=== PATIENT | female | born 1995 | race Caucasian/White ===

== ENCOUNTER 2018-01-26 18:27 | Observation (INO) | payer OTHER ==
[~2018-01-26] VITALS: Ht 175.3 cm; Wt 66.7 kg
[2018-01-26] MEDS ORDERED: ONDANSETRON 4 MG/2 ML VIAL IVP ONE ×2 (18:35→21:10)
[2018-01-26 18:46] LABS: PLATELET COUNT, AUTOMATED 355 K/uL (150-450)
--- NOTE | 2018-01-26 18:47 | ER Report ---
History and Physical Time Seen By MD: 18:31 HPI/ROS CHIEF COMPLAINT: Fall from 25 feet HISTORY OF PRESENT ILLNESS: 22-year-old female brought in by EMS after a fall of approximately 25 feet. She tumbled down the rock face, a total of 25 feet. She struck her head. She also complains of injuring her left knee. EMS responded to the scene. It was a 2 hour hike to get out. Patient was administered fentanyl for pain relief so that she can ambulate. Her left leg is supportive of the same splint and bandaging. There is a laceration to the right eyebrow. Patient's mental status at the scene was initially clear. Patient began to get repetitive per EMS report. She received Zofran 4 mg and fentanyl 50 g 2 in route by EMS. On arrival, she is alert and oriented. She is in a cervical spine collar. She is slightly pale appearing with stable vital signs. REVIEW OF SYSTEMS: Respiratory: No cough, no dyspnea. Cardiovascular: No chest pain, no palpitations. Gastrointestinal: No vomiting, no abdominal pain. Musculoskeletal: No back pain. Allergies: Coded Allergies: No Known Drug Allergies (Unverified , 01/26/18) Home Meds Unable to Obtain Active Prescriptions or Reported Meds Reviewed Nurses Notes: Yes Old Medical Records Reviewed: Yes Constitutional Vital Sign - Last 24 Hours 01/26/18 01/26/18 01/26/18 01/26/18 18:27 18:38 18:45 18:57 Pulse ??? 101 Resp 18 B/P (MAP) 124/83 (97) 125/83 (97) Pulse Ox 100 01/26/18 01/26/18 01/26/18 01/26/18 19:00 19:23 19:27 19:30 Temp 98.7 Pulse 114 106 Resp 18 15 B/P (MAP) 125/89 116/69 (85) 114/61 (78) Pulse Ox 97 99 O2 Delivery Room Air 01/26/18 01/26/18 01/26/18 01/26/18 19:45 19:57 20:00 20:15 Pulse 104 Resp 14 B/P (MAP) 114/52 (72) 109/51 (70) 97/50 (66) Pulse Ox 99 9/29/18 9/29/18 9/29/18 9/29/18 20:15 20:30 20:45 21:00 Pulse 104 98 Resp 10 10 B/P (MAP) 97/50 (66) 101/51 (68) 100/62 (75) 107/60 (76) Pulse Ox 99 97 Physical Exam General Appearance: The patient is alert, has no immediate need for airway protection and no signs of toxicity. The patient of the head and neck reveal no penetrating ulceration to the right eyebrow, facial bones. Intact. Eyes: Pupils equal and round no pallor or injection. PERRLA, EOMI ENT, Mouth: Mucous membranes are moist. TMs normal Respiratory: There are no retractions, lungs are clear to auscultation. No chest wall tenderness Cardiovascular: Regular rate and rhythm., No murmur Gastrointestinal: Abdomen is soft and non tender, no masses, bowel sounds normal. Neurological: Alert and oriented 3,, repetitive amnesia of event, cranial nerves II through XII intact motor 5/5 all groups, sensory intact to light touch 4 Skin: Warm and dry, no rashes. Musculoskeletal: Neck is supple non tender. Extremities are nontender, nonswollen and have full range of motion. There is moderate tenderness on palpation of the left knee. Stool neurovascular functions intact DIFFERENTIAL DIAGNOSIS: After history and physical exam differential diagnosis was considered for fall including but not limited to intracranial injury, long bone and pelvic bone fracture, spinal injury, and intrathoracic injury. Medical Decision Making Data Points Result Diagram: 01/27/18 0520 01/26/18 1814 Laboratory Hematology Test 01/26/18 18:14 Peripheral Blood Smear Yes Y/N Prothrombin Time 13.9 seconds (12.0-14.4) Prothromb Time International Ratio 1.07 Activated Partial Thromboplast Time 30 seconds (23-35) Sodium Level 139 mmol/L (137-145) Potassium Level 3.2 mmol/L (3.5-5.0) Chloride Level 104 mmol/L (98-107) Carbon Dioxide Level 22 mmol/L (22-31) Blood Urea Nitrogen 12 mg/dl (7-18) Creatinine 0.90 mg/dl (0.52-1.04) Glomerular Filtration Rate Calc > 60.0 Random Glucose 105 mg/dl (75-110) Calcium Level 8.6 mg/dl (8.4-10.2) Total Bilirubin 0.6 mg/dl (0.2-1.3) Aspartate Amino Transf (AST/SGOT) 26 U/L (0-35) Alanine Aminotransferase (ALT/SGPT) 31 U/L (0-56) Alkaline Phosphatase 59 U/L (0-126) Total Protein 6.2 g/dl (6.3-8.2) Albumin 3.9 g/dl (3.5-5.0) Human Chorionic Gonadotropin, Qual Negative (NEGATIVE) Serum Alcohol < 10 mg/dl Chemistry Test 01/26/18 18:14 Peripheral Blood Smear Yes Y/N Prothrombin Time 13.9 seconds (12.0-14.4) Prothromb Time International Ratio 1.07 Activated Partial Thromboplast Time 30 seconds (23-35) Glomerular Filtration Rate Calc > 60.0 Calcium Level 8.6 mg/dl (8.4-10.2) Total Bilirubin 0.6 mg/dl (0.2-1.3) Aspartate Amino Transf (AST/SGOT) 26 U/L (0-35) Alanine Aminotransferase (ALT/SGPT) 31 U/L (0-56) Alkaline Phosphatase 59 U/L (0-126) Total Protein 6.2 g/dl (6.3-8.2) Albumin 3.9 g/dl (3.5-5.0) Human Chorionic Gonadotropin, Qual Negative (NEGATIVE) Serum Alcohol < 10 mg/dl Coagulation Test 01/26/18 18:14 Prothrombin Time 13.9 seconds Prothromb Time International Ratio 1.07 Activated Partial Thromboplast Time 30 seconds Toxicology Test 01/26/18 18:14 Serum Alcohol < 10 mg/dl EKG/Imaging Imaging X-ray: Single view chest, 2 views was obtained. I viewed the images myself on the PACS system. My interpretation of the images is: No pneumothorax, no frac tured ribs, no hemothorax. The radiologist interpretation had no clinically significant variation from this interpretation. X-ray: Pelvis, single view was obtained. I viewed the images myself on the PACS system. My interpretation of the images is: No fracture no dislocation or malalignment. The radiologist interpretation had no clinically significant variation from this interpretation. X-ray: Left knee, 3 views was obtained. I viewed the images myself on the PACS system. My interpretation of the images is: Nondisplaced tibial plateau fracture, intra-articular. The radiologist interpretation had no clinically significant variation from this interpretation. ED Course/Re-evaluation Clinical Indication for ER IV: Hydration, IV Access ED Course Patient was admitted to an examination room. H&P was done. The differential diagnoses was considered. On clinical examination. Patient alert and oriented 3. She is repetitive consistent with concussion, head injury. She fell 25 feet down a steep rock face. She's complaining of severe left knee pain. She did ambulate out from the remote location where she was at. EMS escorted her with IVs in administering Zofran and fentanyl as needed. Patient presents in a collar with C-spine precautions. Initially on EMSs arrival, patient had a clear mentation. She began to get repetitive as they got closer to the ambulance. Patient had a jerome CT as well as the head and neck CT which were negative. Plain x-rays of the left knee show a nondisplaced tibial plateau fracture. Patient was admitted to general surgery for monitoring overnight. Decision to Disposition Date: Jan 26, 2018 Decision to Disposition Time: 19:16 Critical Care Time I spent a total of 60 minutes of critical care time in obtaining history, performing a physical exam, bedside monitoring of interventions, collecting and interpreting tests and discussion with consultants but not including time spent performing procedures. Depart Departure Latest Vital Signs Vital Signs Date Time Temp Pulse Resp B/P (MAP) Pulse Ox O2 Delivery O2 Flow Rate FiO2 01/26/18 21:00 107/60 (76) 01/26/18 20:45 98 10 97 01/26/18 19:00 98.7 Room Air Impression: Primary Impression: Injury resulting from fall from height Additional Impressions: Tibial plateau fracture, left Multiple abrasions Condition: Improved Disposition: HOME OR SELF-CARE New Scripts Unable to Obtain Active Prescriptions or Reported Meds Problem Qualifiers Additional Impressions: Tibial plateau fracture, left Encounter type: initial encounter Fracture type: closed Qualified Codes: S82.142A - Displaced bicondylar fracture of left tibia, initial encounter for closed fracture PREET FIELDS DO Jan 26, 2018 18:47
[2018-01-26 18:51] LABS: INR 1.07
[2018-01-26] MEDS: NS(*) 0.9% 500 ML BAG 500 ML IV ONE ×2 (19:00→19:38)
[2018-01-26] MEDS ORDERED: IOPAMIDOL 76% 75 ML INFUS BTL 75 ML ONE (19:03)
[2018-01-26] MEDS ORDERED: MORPHINE 4 MG/ML SDV IVP ONE (19:20)
--- NOTE | 2018-01-26 19:33 | RADIOLOGY IMAGING REPORT ---
FACILITY: [facility] PATIENT NAME: Bhargavi Edgar : 1995 MR: [id number] V: [id number] EXAM DATE: ORDERING PHYSICIAN: PREET FIELDS TECHNOLOGIST: Location: [facility] Patient: Bhargavi Edgar : 1995 Visit/Account:[id number] Date of Sevice: 01/26/2018 CHEST SINGLE AP Indication: Fall from 25 feet.. Comparison: None available Findings: Cardiomediastinal silhouette and pulmonary vessels within normal limits. There is no focal infiltrate or lobar consolidation. No pneumothorax or pleural effusion. No nodule. Upper abdomen is unremarkable. No acute bony abnormality. No discrete rib fractures. Bilat eral nipple piercings. IMPRESSION: 1. No acute cardiopulmonary process. No discrete indication of thoracic trauma. Report Dictated By: Mj Capps at 01/26/2018 7:29 PM Report E-Signed By: Mj Capps at 01/26/2018 7:31 PM WSN:[id number]
--- NOTE | 2018-01-26 19:38 | RADIOLOGY IMAGING REPORT ---
FACILITY: [facility] [place] PATIENT NAME: Bhargavi Edgar : 1995 MR: [id number] V: [id number] EXAM DATE: ORDERING PHYSICIAN: PREET FIELDS TECHNOLOGIST: Location: [facility] [place] Patient: Bhargavi Edgar : 1995 Visit/Account:[id number] Date of Sevice: 01/26/2018 PELVIS INDICATION: Pain after fall. COMPARISON: None available FINDINGS: AP view the pelvis. No fracture or dislocation. The sacral morgan appear intact. SI joints are unremarkable. Hips are symmetric. No bony lesions. Soft tissues are unremarkable. IMPRESSION: No acute abnormality. Report Dictated By: Mj Capps at 01/26/2018 7:33 PM Report E-Signed By: Mj Capps at 01/26/2018 7:35 PM WSN:[id number]
--- NOTE | 2018-01-26 19:39 | RADIOLOGY IMAGING REPORT ---
FACILITY: [facility] PATIENT NAME: Bhargavi Edgar : 1995 MR: [id number] V: [id number] EXAM DATE: ORDERING PHYSICIAN: PREET FIELDS TECHNOLOGIST: Location: [facility] [place] Patient: Bhargavi Edgar : 1995 Visit/Account:[id number] Date of Sevice: 01/26/2018 KNEE 3 VIEW LEFT Indication: Knee pain after fall from 25 feet. Comparison: None available Findings: 3 views left knee were obtained. Comminuted fracture of the proximal tibia with multiple fracture lines extending vertically from the lateral posterior diaphysis into the tibial plateau. The lateral tibial plateau does appear to show m ild depression possibly up to 2 to 3 mm on the lateral aspect.. There is avulsion off the tibial analy ence. No other indication of fracture. Large joint effusion is present. No bony lesions or degenerati ve changes. Soft tissues are otherwise unremarkable. IMPRESSION: 1. Proximal tibia fracture with possible mild depression of lateral tibial plateau. Joint effusion. I called report to PREET FIELDS at 01/26/2018 7:36 PM. Report Dictated By: Mj Capps at 01/26/2018 7:31 PM Report E-Signed By: Mj Capps at 01/26/2018 7:36 PM WSN:[id number]
--- NOTE | 2018-01-26 20:26 | RADIOLOGY IMAGING REPORT ---
FACILITY: [facility] [place] PATIENT NAME: Bhargavi Edgar : 1995 MR: [id number] V: [id number] EXAM DATE: ORDERING PHYSICIAN: PREET FIELDS TECHNOLOGIST: [place] [facility] [place] Bhargavi [place] : 1995 Visit/Account:[id number] Date of Sevice: 01/26/2018 CT Head without contrast and CT Cervical spine: Indication: Fall from 25 feet. Rockclimbing. Comparison: None available Technique: CT head: Axial CT images were obtained through the brain from the skull base to the verte x without administration of IV contrast. Reformatted coronal and sagittal images were also obtained. Technique: CT cervical spine: Axial CT imaging of the cervical spine was performed. 2-D sagittal and coronal CT reformats were also obtained. One of the following dose optimization techniques was utilized in the performance of this exam: Autom ated exposure control; adjustment of the mA and/or kV according to the patient's size; or use of an i terative reconstruction technique. Specific details can be referenced in the facility's radiology C T exam operational policy. FINDINGS: CT head: No intracranial bleed, midline shift, mass effect, extra-axial fluid collection or hydrocephalus. No abnormal density. Collier/white matter differentiation appears normal. The bony structures show no fract ures or discrete lesions. The left maxillary sinus does show some fluid and mucosal thickening with o bscuration ostomy complex. The remaining sinuses and mastoids visualized are clear. Small laceration along the lateral right for head. CT cervical spine: The vertebral bodies are aligned. No fracture or facet dislocation. No bony lesions or degenerative c hanges. The endplates are maintained. No obvious disc herniation. Prevertebral soft tissues and surro unding soft tissues are unremarkable. Lung apices are clear. IMPRESSION: 1. No acute intracranial abnormality. No fracture. 2. No acute osseous or acute alignment abnormality of the cervical spine. 3. Fluid and mucosal thickening seen in left maxillary sinus. Likely due to sinus disease. No discret e fractures are identified. Report Dictated By: Mj Capps at 01/26/2018 8:15 PM Report E-Signed By: Mj Capps at 01/26/2018 8:23 PM WSN:[id number]
--- NOTE | 2018-01-26 20:27 | RADIOLOGY IMAGING REPORT ---
FACILITY: [facility] PATIENT NAME: Bhargavi Edgar : 1995 MR: [id number] V: [id number] EXAM DATE: ORDERING PHYSICIAN: PREET FIELDS TECHNOLOGIST: Location: [facility] Patient: Bhargavi Edgar : 1995 Visit/Account:[id number] Date of Sevice: 01/26/2018 CT Head without contrast and CT Cervical spine: Indication: Fall from 25 feet. Rockclimbing. Comparison: None available Technique: CT head: Axial CT images were obtained through the brain from the skull base to the verte x without administration of IV contrast. Reformatted coronal and sagittal images were also obtained. Technique: CT cervical spine: Axial CT imaging of the cervical spine was performed. 2-D sagittal and coronal CT reformats were also obtained. One of the following dose optimization techniques was utilized in the performance of this exam: Autom ated exposure control; adjustment of the mA and/or kV according to the patient's size; or use of an i terative reconstruction technique. Specific details can be referenced in the facility's radiology C T exam operational policy. FINDINGS: CT head: No intracranial bleed, midline shift, mass effect, extra-axial fluid collection or hydrocephalus. No abnormal density. Collier/white matter differentiation appears normal. The bony structures show no fract ures or discrete lesions. The left maxillary sinus does show some fluid and mucosal thickening with o bscuration ostomy complex. The remaining sinuses and mastoids visualized are clear. Small laceration along the lateral right for head. CT cervical spine: The vertebral bodies are aligned. No fracture or facet dislocation. No bony lesions or degenerative c hanges. The endplates are maintained. No obvious disc herniation. Prevertebral soft tissues and surro unding soft tissues are unremarkable. Lung apices are clear. IMPRESSION: 1. No acute intracranial abnormality. No fracture. 2. No acute osseous or acute alignment abnormality of the cervical spine. 3. Fluid and mucosal thickening seen in left maxillary sinus. Likely due to sinus disease. No discret e fractures are identified. Report Dictated By: Mj Capps at 01/26/2018 8:15 PM Report E-Signed By: Mj Capps at 01/26/2018 8:23 PM WSN:[id number]
--- NOTE | 2018-01-26 20:38 | RADIOLOGY IMAGING REPORT ---
FACILITY: [facility] PATIENT NAME: Bhargavi Edgar : 1995 MR: [id number] V: [id number] EXAM DATE: ORDERING PHYSICIAN: PREET FIELDS TECHNOLOGIST: Location: [facility] [place] Patient: Bhargavi Edgar : 1995 Visit/Account:[id number] Date of Sevice: 01/26/2018 EXAMINATION: CT chest with IV contrast CT abdomen with IV contrast CT pelvis with IV contrast HISTORY: Fall from 25 feet. Rockclimbing. TECHNIQUE: Spiral scan was obtained through the chest, abdomen and pelvis during injection of nonio sabine iodinated intravenous contrast. Sagittal and coronal reformatted images are also submitted. One of the following dose optimization techniques was utilized in the performance of this exam: Autom ated exposure control; adjustment of the mA and/or kV according to the patient's size; or use of an i terative reconstruction technique. Specific details can be referenced in the facility's radiology C T exam operational policy. CONTRAST: 75 mL of IV Isovue-370. COMPARISON: None. FINDINGS: CT THORAX: Lungs / pleura: No consolidation, pleural effusion or pneumothorax. The lateral right lower lobe chery s show a pleural-based 6 x 3 mm nodule on image #80 series 5. The left lower lobe does show a lateral pleural-based nodule measuring 7 x 5 mm on image #80. No other nodules. No focal interstitial opacit ies. Airways are clear. Mediastinum / brandi: No abnormal density or enlarged lymph nodes. Heart / pericardium: Normal size without pericardial fluid. Vessels: Aorta shows no aneurysm or dissection. Pulmonary arteries are grossly normal. Musculoskeletal / Body wall: No acute fracture. No discrete or displaced rib fractures. No vertebral body compression. Sternum is intact. No aggressive bony lesion. Chest wall shows no enlarged axillar y lymph nodes or masses. CT ABDOMEN AND PELVIS: Liver / biliary: Liver shows no focal abnormality or perihepatic fluid. Gallbladder and biliary syste m are unremarkable. Pancreas: No focal abnormality. Spleen: No focal abnormality or perisplenic fluid. Adrenal glands: Negative. Kidneys: No focal abnormality. Pelvic structures: The right ovary shows several cysts, largest measuring 2.8 cm. The remaining pe lvic structures visualized are within normal limits. Bowel: The visualized gastrointestinal tract is within normal limits. Peritoneum / retroperitoneum / mesenteries: No free air, fluid collections or areas of inflammation. Very small amount of free fluid in pelvis likely physiologic. Vessels: Negative. Musculoskeletal / Body wall: No acute fractures. Vertebral bodies show no compression. No aggressive bony lesions. Pseudoarthrosis of the bilateral L5 transverse process and sacrum. Lymph node assessment: Negative. IMPRESSION: 1. No acute abnormality or indication of traumatic injury to the chest, abdomen or pelvis. 2. Bilateral lower lobe lung nodule. This too small characterize and could be postinflammatory. Large st is 7 mm. Suggest follow-up per Fleischner guidelines described below. 3. Right ovarian cysts. 4. Other chronic findings as above. FLEISCHNER SOC[employer]ETY FOLLOW-UP GUIDELINES FOR NEWLY DETECTED INCIDENTAL NODULES IN PERSONS 35 YEARS OF AGE OR OLDER. *THESE RECOMMENDATIONS DO NOT APPLY TO LUNG CANCER SCREENING, PATIENTS WITH IMMUNOSUPPRESSION , OR PA TIENTS WITH KNOWN PRIMARY MALIGNANCY. MULTIPLE SOLID NODULES If largest nodule size is less than 6 mm: Low risk patient - no follow up needed High risk patient - Optional CT at 12 months. If largest nodule size is 6-8 mm: Low risk patient - follow up CT at 3-6 months, then consider CT at 18-24 months if no change. High risk patient - follow up CT at 3-6 months, then CT at 18-24 months if no change. If largest nodule size is greater than 8 mm: Low risk patient - follow up CT at 3-6 months, then consider CT at 18-24 months High risk patient - follow up CT at 3-6 months, then at 18-24 months LOW RISK PATIENT: Minimal or absent history of tobacco use and of ot er known risk factors. HIGH RISK PATIENT: Tobacco use, family history of lung cancer, upper pulmonary lobe location of nodul e, presence of emphysema, pulmonary fibrosis, older age.Marietta H, Esperanza DP, Shana JM, et al. Guidel eduard for Management of Incidental Pulmonary Nodules Detected on CT Images: From the [employer]isch[employer] Soci[employer] y 2017. Radiology. Report Dictated By: Mj Capps at 01/26/2018 8:23 PM Report E-Signed By: Mj Capps at 01/26/2018 8:34 PM WSN:[id number]
[2018-01-26] MEDS ORDERED: MORPHINE 2 MG/ML SYR IVP ONE (20:55)
[2018-01-26 21:49] VITALS: BP 135/67
[2018-01-26] MEDS ORDERED: ONDANSETRON 4 MG/2 ML VIAL IVP PRN (22:30)
[2018-01-26] MEDS: LR 1000 ML IV PRN (22:43)
[2018-01-26] MEDS: MORPHINE 4 MG/ML SDV IVP PRN (22:47)
[2018-01-26 23:51] VITALS: BP 116/56
[2018-01-27 01:35] VITALS: BP 117/63
[2018-01-27] MEDS: ACETAMINOPHEN(*)1000 MG/100 ML 100 ML IVPB PRN ×2 (02:44→14:19)
[2018-01-27] MEDS ORDERED: NS(*) 0.9% 1000 ML BAG 1,000 ML IV ONE ×2 (03:40)
[2018-01-27 03:54] VITALS: BP 118/65
[2018-01-27] MEDS: MORPHINE 4 MG/ML SDV IVP PRN ×4 (05:02→15:17)
[2018-01-27] MEDS: LR 1000 ML IV PRN (06:00)
[2018-01-27 06:29] LABS: PLATELET COUNT, AUTOMATED 255 K/uL (150-450)
[2018-01-27 08:00] VITALS: BP 120/70
[2018-01-27 11:44] VITALS: BP 113/75
[2018-01-27] MEDS ORDERED: ENOXAPARIN 40 MG/0.4ML SYR SC SCH (13:00)
--- NOTE | 2018-01-27 14:13 | RADIOLOGY IMAGING REPORT ---
FACILITY: [facility] PATIENT NAME: Bhargavi Edgar : 1995 MR: [id number] V: [id number] EXAM DATE: [id number] ORDERING PHYSICIAN: NEFTALI ARAUJO TECHNOLOGIST: Location: [facility] Patient: Bhargavi Edgar : 1995 Visit/Account:[id number] Date of Sevice: 01/27/2018 INDICATION: Evaluate tibial plateau fracture. DATE: 01/27/2018 1:52 PM. TECHNIQUE: KNEE LEFT W/O CONTRAST. Noncontrast axial CT imaging was performed through the knee with sagittal and coronal reformats. One of the following dose optimization techniques was utilized in e performance of this exam: Automated exposure control; adjustment of the mA and/or kV according to t he patient's size; or use of an iterative reconstruction technique. Specific details can be referen bryce in the facility's radiology CT exam operational policy. COMPARISON: Knee radiographs January 26, 2018 FINDINGS: A fracture of the lateral tibial plateau is comminuted with multiple mildly displaced fragm ents. Multiple fracture lines extend to the intercondylar eminences. There there is depression at t he posterior margin of the lateral tibial plateau. Fracture lines extend along the anterior cortex o f the tibia to the proximal metadiaphysis. Proximal fibula is intact. The distal femur is intact. There is no patellar fracture. The quadriceps and patellar tendons appear grossly intact. The PCL appears intact. The ACL is quite poorly evaluated but is attached to one of the displaced and superiorly retracted fragments. The associated knee lipohemarthrosis is large. IMPRESSION: Extensively comminuted lateral tibial plateau fracture as above. Report Dictated By: Amanda Albrecht MD at 01/27/2018 1:52 PM Report E-Signed By: Amanda Albrecht MD at 01/27/2018 2:10 PM WSN:[id number]
--- NOTE | 2018-01-27 14:19 | Hospitalist Depart ---
Discharge Summary Reason for Hosp/Final Diag: (1) Multiple abrasions Status: Acute Hospital Course & Plan: Kept under observation. (2) Injury resulting from fall from height Status: Acute Hospital Course & Plan: Kept under observation. Initially had H/A and N, both resolved overnight. (3) Tibial plateau fracture, left Status: Acute Hospital Course & Plan: Consult with orthopedic surgeon; after review of knee CT, he felt treatment needed higher level of care than what is available in [place] or [place]. Pt. will be transferred to [facility] in [place]. Departure Weight (Pounds): 147 Result Diagram: 01/27/18 0520 01/26/18 1814 Imaging Comminuted Lt. tibial plateau fx.; CT of head, neck, chest, abd., pelvis. neg. Condition: Improved Discharge: Other Facility, Another Hospital Discharge Code Status: Full Code Time Spent: < 30 min Consults Orthopedic surgery Discharge Instructions Home Meds Unable to Obtain Active Prescriptions or Reported Meds Diet: Regular Activity: With Walker Special Instructions: Venous Thromboembolism VTE Risk Physician Assess for VTE Risk: Yes Patient's VTE Risk: High VTE Diagnostic Test 2 Days Prior to Admit: No Antithrombotics Is Pt On Any Antithrombotics?: Yes (Lovenox begun today, 40mg SC) Problem Qualifiers (1) Tibial plateau fracture, left: Encounter type: initial encounter Fracture type: closed Qualified Codes: S82.142A - Displaced bicondylar fracture of left tibia, initial encounter for closed fracture AUTUMN PETERSEN IV, MD Jan 27, 2018 14:19
--- NOTE | 2018-01-28 09:34 | HISTORY AND PHYSICAL ---
DATE OF ADMISSION: January 26, 2018 CHIEF COMPLAINT Headache and left leg pain. HISTORY OF PRESENT ILLNESS This is a 22-year-old female who was rock climbing on the day of admission and she fell approximately 25 feet. She tumbled down a rock face, striking her head multiple times. EMS responded to the scene and noted that it was a two hour hike to get the patient out. The patient was administered Fentanyl for pain relief so that she was able to ambulate. Mental status at the scene was noted to be initially clear but per EMS report the patient began to get repetitive. She received Zofran and Fentanyl en route by EMS. When seen in the ED, she was alert and oriented. This was all late yesterday when patient was evaluated in the ED. Overnight, she complained of nausea and persistent headache. This morning she is reporting the headache has resolved after receiving IV acetaminophen during the night. She also notes that she is hungry at the present time. PAST MEDICAL HISTORY Noncontributory. PAST SURGICAL HISTORY Extraction of wisdom teeth. CURRENT MEDICATIONS None. ALLERGIES No known drug allergies. SOCIAL HISTORY Patient notes that she smokes perhaps once a month. Alcohol use is prescribed as one drink per day on average. She denies use of illegal drugs. REVIEW OF SYSTEMS CONSTITUTIONAL: No fevers. EYES: No visual changes. ENT/MOUTH: No dysphagia. RESPIRATORY: No cough. No dyspnea. CV: No chest pain. GI: As noted above. Patient denies any history of diarrhea or constipation. She also denies blood in the stool. : No gross hematuria. INTEGUMENTARY: No history of rashes. NEUROLOGICAL: No history of migraines. Patient does not a previous concussion several years ago which occurred during a sporting activity. PSYCHIATRIC: History of anxiety and depression but patient is not currently taking medicine for this. MUSCULOSKELETAL: As noted above. Also, see radiological reports below. No history of joint enlargement. ENDOCRINE: No heat or cold intolerance. HEME: No history of coagulopathy. PHYSICAL EXAMINATION GENERAL: This is a well-developed, well-nourished, young adult female in no acute distress. VITAL SIGNS: Temperature 98.9 orally, pulse rate 97, respiratory rate 12, blood pressure 120/70, O2 saturation is 97% on room air. HEAD/NECK: There are several abrasions on the right side of the face and there is a 2 cm laceration above the lateral aspect of the right eyebrow. This was cleaned and sutured in the ED by Dr. Bergman. There is no tenderness to palpation on the posterior head or neck. Neck exam is unremarkable with no masses noted. Thyroid is of normal size and texture. EYES: Pupils are equally reactive bilaterally, somewhat constricted but reactive. Sclerae are anicteric. Conjunctivae are not pale. ENT/MOUTH: External ears and nose appear normal. Oropharynx is unremarkable. RESPIRATORY: Lungs are clear to auscultation bilaterally. CV: Heart has regular rate and rhythm without tachycardia or murmur. ABDOMEN: Bowel sounds are positive. Abdomen is soft. It is not distended. It is nontender. INTEGUMENTARY: Facial injuries as noted above. In addition, there are multiple extensive abrasions over the lateral aspect of the right upper extremity. EXTREMITIES: As noted above for the RUE. There is pronounced swelling of the left leg, which is currently in an immobilizer spline (see radiological studies below). NEUROLOGICAL: Hand finisher card tender are equal and strong bilaterally. PSYCHIATRIC: Patient is awake. She is oriented at this time and she responds appropriately throughout the interview and exam. LABORATORY STUDIES WBC yesterday at 1800 was 22.6 with 81.3% neutrophils. This morning, repeat WBC is 14.7 with 86.2% neutrophils. H/H this morning is 12.4/37.2 and platelet count today is 255. Coagulation studies show a PT of 13.9, INR 1.07 and APTT of 30. CMP is normal except for potassium of 3.2 and total protein of 6.2 (results from late yesterday). RADIOLOGICAL STUDIES Chest x-ray was unremarkable. CT of the chest, abdomen and pelvis is remarkable only for bilateral lower lobe lung nodules being too small to characterize, felt possibly to be post inflammatory. The largest is 7 mm and followup is suggested per Fleischner guidelines. Pelvis x-ray was also unremarkable. C-spine CT showed no fracture. Head CT showed no acute abnormality and no fracture. X-ray of the left knee showed a comminuted fracture of the proximal tibia with multiple fracture lines extending into the tibial plateau. There appeared to be mild depression possibly up to 2-3 mm on the lateral aspect. There was also noted to be joint effusion. ASSESSMENT Blunt trauma after fall during rock climbing. The patient appears to have a mild closed head injury with symptoms of nausea that has now resolved and headache which is also resolved. In addition, the patient has sustained a left tibial plateau fracture. PLAN We will start the patient on oral clear liquids and then advance as tolerated. She will be kept under observation for now. A consultation has been obtained with the orthopedic staff and I have discussed the care with Dr. Mathew. He has ordered a CT scan of the knee, which has been done, but report is still pending on this. Dr. Mathew states that if the displacement is mild for the fracture the patient can probably be treated nonoperatively. For now, patient will remain under observation. NATALIE
== END 2018-01-27 15:43 | disposition short-term general hospital (02) ==
LOC: EDBD 18:28 → ER 18:28 → INTOOBSV 21:07 → MED 21:07
PROVIDERS: ADMIT Surgery; ATTEND Surgery
DX: S82.142A Displaced bicondylar fracture of left tibia, initial encounter for closed fracture (principal)
CPT/HCPCS: 36415; 70450; 71045; 71260; 72125; 72170; 73562; 73700; 74177; 80320; 84703; 85025; 85610; 85730; 96372; 96374; 96375; 99285; G0378; J0131; J1650; J2270; J2405; J7030; J7120; L1830; Q9967; 82040; 82247; 82310; 82374; 82435; 82565; 82947; 84075; 84132; 84155; 84295; 84450; 84460; 84520; J7040

== ENCOUNTER → 2018-01-26 | Outpatient (CLI) | payer OTHER | LOC: AMB 17:07 | PROVIDERS: ATTEND Nurse Practitioner | DX: M79.605 Pain in left leg (principal); S01.01XA Laceration without foreign body of scalp, initial encounter; R42 Dizziness and giddiness; R41.0 Disorientation, unspecified; R11.0 Nausea; W19.XXXA Unspecified fall, initial encounter; Y93.01 Activity, walking, marching and hiking | CPT/HCPCS: A0425; A0433 ==

== ENCOUNTER → 2018-08-27 | Outpatient (REF) | payer OTHER | LOC: ZZSENDIN 12:23 | PROVIDERS: ATTEND Physician Assistant | DX: R30.0 Dysuria (principal) | CPT/HCPCS: 81001; 87088 ==